=== PATIENT | female | born 1990 | race Caucasian/White ===

== ENCOUNTER 2021-03-03 16:26 | Emergency (ER) | payer MEDICAID, OTHER, SELFPAY ==
--- NOTE | ~2021-03-03 | CT_ITS ---
EXAMINATION: CT HEAD WITHOUT CONTRAST CLINICAL INFORMATION: Headache COMPARISON: CT head May 08, 2019, February 14, 2018 TECHNIQUE: Contiguous axial imaging was performed from the skull base to vertex without intravenous administration of contrast. Coronal and sagittal reformatted images are performed at the CT scanner. [This CT examination was performed using dose optimization techniques as appropriate, variously including the following: *Automated exposure control *Adjustment of mA and/or kV according to patient size (this includes techniques or standardized protocols for targeted exams where dose is matched to indication/reason for exam; i.e. extremities or head) *Use of iterative reconstruction technique] DLP: 702 mGy-cm. FINDINGS: There is no evidence of acute intracranial hemorrhage or territorial infarction. No abnormal mass-effect or midline shift is seen. Tomlin to white matter differentiation is well preserved. No extra-axial fluid collections are identified. The ventricles are normal in size. There is no abnormal attenuation within the brain parenchyma. There is no osseous abnormality. The mastoid air cells and visualized portions of the paranasal sinuses are well-aerated. CT/CT head/brain wo con IMPRESSION: No acute intracranial pathology.
[2021-03-03 17:33] VITALS: BP 122/55; PULSE 78; RESP 18; TEMP 36.6; O2SAT 100; BMI 26.6
--- NOTE | 2021-03-03 17:35 | ED.HA ---
HPI - Headache General Chief Complaint: Headache Stated Complaint: migraine Time Seen by Provider: 03/03/21 17:34 Source: patient Mode of arrival: ambulatory Limitations: no limitations History of Present Illness HPI Narrative: PATIENT PRESENTS TO ED FOR HEADACHE, SINUS PRESSURE PAIN, RIGHT EAR PAIN, AND NASAL CONGESTION. PATIENT WAS CONCERNED DUE TO SEVERITY OF HEADACHE and symptoms for 2 days.. PATIENT STATES SHE IS NOT VACCINATED. PATIENT DENIES ANY FEVER, CHILLS, NECK STIFFNESS, PHOTOPHOBIA, NAUSEA, OR VOMITING. PATIENT DENIES ANY CHEST PAIN, SHORTNESS OF BREATH, OR COUGHING. Related Data Previous Rx's Medication Instructions Recorded fluticasone propionate 50 2 spray INTRANASAL DAILY PRN 9 03/03/21 mcg/actuation nasal Days #16 g spray,suspension naproxen 500 mg tablet 500 mg PO BID PRN #20 tab 03/03/21 Allergies Allergy/AdvReac Type Severity Reaction Status Date / Time No Known Allergies Allergy Unverified 02/15/20 19:33 [No Known Allergies*] Review of Systems Review of Systems: Yes all other systems are reviewed and are negative Constitutional: Constitutional: Reports as per HPI, Reports no additional constitutional complaints and Reports headache(s) Eyes: Eyes: Reports as per HPI and Reports no additional eye complaints ENT: Reports otalgia, Reports headache(s), Reports sinus pressure and Reports sore throat Cardiovascular: Cardiovascular: Reports as per HPI and Reports no additional cardiovascular complaints Respiratory: Respiratory: Reports as per HPI and Reports no additional respiratory complaints Gastrointestinal: Gastrointestinal: Reports as per HPI and Reports no additional gastrointestinal complaints Genitourinary: Genitourinary: Reports no additional female genitourinary complaints and Reports as per HPI Musculoskeletal: Musculoskeletal: Reports no additional musculoskeletal complaints and Reports as per HPI Neurologic: Reports system reviewed and no additional complaints, except as documented, Reports as per HPI and Reports headache(s) Psychiatric: Psychiatric: Reports no additional psychiatric complaints and Reports as per HPI [facility] Social History Social History Advance Directives: No Advance Directives Information Provided: No Patient : No Physical Exam Vital Signs: Vital Signs: Last Vital Signs Temp 98 F 03/03/21 17:33 Pulse 78 03/03/21 17:33 Resp 18 03/03/21 17:33 BP 122/55 L 03/03/21 17:33 Pulse Ox 100 03/03/21 17:33 Body Mass Index 26.6 Const: General: cooperative, healthy appearing, comfortable, no acute distress, well developed, alert, awake and Physically active Orientation/consciousness: patient oriented x3 HENMT: Head: Yes normal to inspection, Yes No palpable skull fracture present, Yes normocephalic and Yes atraumatic Ears: hearing grossly normal bilaterally, external ears normal, TM's normal bilaterally, EAC's normal, mastoids normal and no periauricular adenopathy Face and sinus: Yes sinus tenderness (FRONTAL AND MAXILLARY) Throat: Yes posterior oropharynx normal, Yes tonsils normal and Yes uvula midline Eyes: General: appearance normal, both eyes and all related structures Neck: Neck: Yes normal visual inspection, Yes full ROM, Yes no lymphadenopathy, Yes no meningeal signs, Yes trachea midline, Yes supple, No anterior neck swelling and No tender Chest: Chest palpation & inspection: normal inspection of the chest and normal palpation of entire chest wall Resp: Effort & Inspection: normal respiratory effort and able to speak in complete sentences Auscultation: clear to auscultation bilaterally Cardio: Jugular venous distension: no JVD Heart sounds: S1 normal heart sound present and S2 normal heart sound present GI: Inspection: Yes normal to inspection and No abdominal wall ecchymosis Palpation (GI): Soft to palpation, not firm, nontender, no guarding and not rigid : General: No CVA tenderness and Yes no CVA tenderness Back/Spine/Pelvis: Back: no CVA tenderness, No CVA tenderness and No back tenderness Skin: General skin exam: no rashes or lesions noted and elasticity normal Neuro: General: patient oriented x3, gait normal, no meningeal signs and CN's II-XI intact bilaterally Cranial nerves: Yes CN's II-XII intact bilaterally Extrem: General: Yes normal to inspection and Yes full ROM Psych: Appearance: grossly normal, well kempt and not disheveled Course Course Course Narrative: COVID SWAB ORDERED. PATIENT WAS CONCERNED due to HEADACHE ALTHOUGH SHE HAS SINUS TENDERNESS PATIENT WAnts HEAD CT SCAN DUE TO PARIETAL/POSTERIOR HEADACHE WITH SINUS PRESSURE AND RUNNY NOSE AND EAR PAIN. Reevaluation(s) Reevaluation #1: HEAD CT IN COVID SOME CAME BACK NEGATIVE. PATIENT WILL BE DISCHARGED WITH NEEDLE CORE AND NAPROXEN. Time: 19:41 MDM - Headache MDM Narrative Medical decision making narrative: SINUSITIS/HEADACHE Lab Data Labs: Lab Results 03/03/21 Range/Units 18:19 COVID-19 (MARCY) Negative (Negative) COVID-19 Clin Com See Note Discharge Plan Discharge Clinical Impression: Headache, Sinusitis Patient Disposition: Home, Self-Care Instructions: Sinusitis (ED), General Headache (ED) Additional Instructions: Your CT SCAN AND COVID SWAB CAME BACK NEGATIVE. Return to the ED immediately for any chest, shortness of breath, blurry vision, loss of vision, neck stiffness, photophobia, nausea, vomiting, slurred speech, facial droop, paralysis of extremities, or any other concerning symptoms. Please follow up with PCP Prescriptions: New naproxen 500 mg tablet 500 mg PO BID PRN (Reason: pain) Qty: 20 RF: 0 fluticasone propionate 50 mcg/actuation spray,suspension 2 spray intranasal DAILY PRN (Reason: nasal congestion) 9 Days Qty: 16 RF: 0 Stand Alone Forms: Work/School Release Print Language: Croatian
[2021-03-03 18:43] LABS: COVID-19 Test Negative (Negative)
== END 2021-03-03 19:54 | disposition home or self-care (01) ==
PROVIDERS: Physician Assistant; Emergency Provider Internal Medicine
DX: J32.9 Chronic sinusitis, unspecified (principal); R51.9 Headache, unspecified; Z20.822 Contact with and (suspected) exposure to COVID-19; Z79.899 Other long term (current) drug therapy
CPT/HCPCS: 36415; 70450; 87635; 99283; 99284

== ENCOUNTER 2021-03-26 10:47 | Outpatient (REF) | payer MEDICAID, OTHER, SELFPAY ==
--- NOTE | ~2021-03-26 | MM_ITS ---
EXAMINATION: MM DIAGNOSTIC DIGITAL BREAST TOMOSYNTHESIS, BILATERAL TARGETED LEFT BREAST ULTRASOUND CLINICAL INFORMATION: Left breast pain and fullness. The lifetime risk of breast cancer based on the Tyrer-Cuzick Model is 9.3%. COMPARISON: Mammography: None. TECHNIQUE: Digital breast tomosynthesis is performed in both the craniocaudal and mediolateral oblique views along with computer-aided detection (CAD). Synthesized 2D images are generated from the tomosynthesis. Targeted left breast ultrasound. FINDINGS: BILATERAL MAMMOGRAM: The breasts are heterogeneously dense, which may obscure small masses (ACR BI-RADS breast composition Category c). There are no significant masses, abnormal calcifications, or other abnormalities. LEFT BREAST ULTRASOUND: Targeted left breast ultrasound did not demonstrate any abnormal cystic or solid lesions. No region of abnormal distal sound shadowing appreciated. Results are discussed with the patient at time of visit. MM/MM tomosynthesis diagnostic BI IMPRESSION: No specific mammographic or ultrasound findings to suggest malignancy. ASSESSMENT: BI-RADS 1: Negative. RECOMMENDATION: Clinical management. This patient's information was entered into a reminder system with a target due date for their next mammogram.
--- NOTE | ~2021-03-26 | US_ITS ---
EXAMINATION: US DIAGNOSTIC ULTRASOUND BREAST, LEFT CLINICAL INFORMATION: Pain for 6 months. COMPARISON: Mammography of same day. TECHNIQUE: Ultrasound of the breast is performed with real-time castillo scale imaging and color Doppler. FINDINGS: There is no focal suspicious finding. There is no solid mass, architectural abnormality, duct ectasia, or edema in the soft tissue planes. Results are discussed with the patient at time of visit. US/US breast LT limited IMPRESSION: No ultrasound findings to suggest malignancy. ASSESSMENT: BI-RADS 1: Negative RECOMMENDATION: Yearly mammography at age 38.
== END 2021-03-26 10:48 | disposition home or self-care (01) ==
LOC: HO.MAMMO 10:47
PROVIDERS: Visit Provider General Practice
DX: N64.4 Mastodynia (principal)
CPT/HCPCS: 76642; 77062; 77066

== ENCOUNTER 2021-08-14 15:32 | Outpatient (REF) | payer OTHER, MEDICAID, SELFPAY ==
--- NOTE | ~2021-08-14 | US_ITS ---
EXAMINATION: US PELVIS CLINICAL INFORMATION: Pelvic and perineal pain; the last menstrual period was on 07/20/2021. COMPARISON: None TECHNIQUE: Ultrasound of the pelvis is performed using both transabdominal and transvaginal transducers along with Doppler. Transvaginal imaging is performed due to inadequate visualization transabdominally. FINDINGS: Uterus: The uterus is anteverted and measures 9.5 x 5.2 x 6.8 cm. The double wall endometrial thickness is 1.2 mm. The uterus is smooth in contour and has normal myometrial echogenicity. No visible fibroid. Adnexa: Both ovaries are visualized. There is normal color flow to the adnexa. There is no ovarian torsion. There is no pelvic ascites or fluid collection. The right ovary contains a 2.8 x 1.8 x 2.6 cm hemorrhagic cyst, with characteristic internal reticulated contents. There is an adjacent 2.6 x 1.8 x 2.1 cm simple cyst. Right ovary measures 4.3 x 3.5 x 2.9 cm, (volume 22.9 mL). There is a small amount of free fluid situated adjacent to the right ovary. Left ovary measures 3.0 x 1.7 x 1.6 cm, (volume 4.2 mL). There is a small amount of free fluid in the cul-de-sac. No adnexal mass is seen. US/US pelvic and transvaginal IMPRESSION: 1. A 2.8 cm in maximal diameter hemorrhagic right ovarian cyst and an adjacent 2.6 cm and maximal diameter simple right ovarian cyst have benign appearances. No ultrasound follow-up is recommended. 2. There is a small amount of nonspecific free fluid situated adjacent to the right ovary and within the cul-de-sac.
== END 2021-08-14 15:33 | disposition home or self-care (01) ==
LOC: HO.HMGCX 15:32
PROVIDERS: Visit Provider General Practice
DX: R10.2 Pelvic and perineal pain (principal)
CPT/HCPCS: 76830; 76856

== ENCOUNTER 2022-03-08 14:12 | Emergency (ER) | payer MEDICAID, OTHER, SELFPAY ==
[2022-03-08 14:22] VITALS: BP 121/79; PULSE 78; RESP 14; TEMP 36.8; O2SAT 99; BMI 29.7
--- NOTE | 2022-03-08 18:28 | ED_ITS ---
HPI - Fall General Chief Complaint: Fall Stated Complaint: Fall/back pain Time Seen by Provider: 03/08/22 18:03 Source: patient Mode of arrival: ambulatory Limitations: language barrier History of Present Illness HPI Narrative: 32-year-old female presents for lower back pain, left chest wall pain, mid back and right shoulder pain after falling down some stairs on Wednesday. She does not describe any prodromal events, states she tripped down the stair. She presents today because all xvde-lms-qlsjvry measures that she has tried has not alleviated her pain. She did not hit her head, and did not lose consciousness. MD complaint: fall Onset (ago): day(s) (3) Fall from: standing and down stairs (#) (3) Fall witnessed: no Place fall occurred: home Loss of consciousness: none Prolonged down time: no Symptoms prior to fall: none Context: tripped/slipped Location of injury: neck, chest and back Location of injury - extremities: right: shoulder Severity: moderate Severity scale (1-10): 7 Quality: aching, spasming and throbbing Associated symptoms (after fall): neck pain Related Data Previous Rx's Medication Instructions Recorded fluticasone propionate 50 2 spray intranasal DAILY PRN nasal 03/03/21 mcg/actuation nasal congestion 9 days #16 grams spray,suspension naproxen 500 mg tablet 500 mg PO BID PRN pain #20 tabs 03/03/21 cyclobenzaprine 10 mg tablet 10 mg PO TID PRN muscle spasm #14 03/08/22 tabs Allergies Allergy/AdvReac Type Severity Reaction Status Date / Time No Known Allergies Allergy Verified 03/08/22 14:27 [No Known Allergies*] Review of Systems Review of Systems: Constitutional: No Fever, No Chills ENT/Mouth: No Ear Pain, No Hoarseness, No sore throat Eyes: No Eye Pain, No Swelling, No Redness, No Foreign Body Cardiovascular: No Chest Pain, No SOB Respiratory: No Cough, No Dyspnea Gastrointestinal: No Nausea, No Vomiting, No Diarrhea, No abdominal Pain Genitourinary: No Dysuria, No Hematuria Musculoskeletal: positive neck, thoracic and lumbar spine, right shoulder and left chest wall pain, No Myalgias, No Joint Swelling Skin: No Skin lacerations, No rash Neuro: No Weakness, No Numbness, No Paresthesias, No Loss of Consciousness, No Dizziness, No Headache Psych: No Anxiety/Panic, No Depression Heme/Lymph: no easy bruising, no Lymphadenopathy Endocrine: No Polyuria, No Polydipsia Yes all other systems are reviewed and are negative [facility] Past Medical History Attestation statement: The following information was validated with the patient. Source: old records reviewed Social History Social History Advance Directives: No Advance Directives Information Provided: Yes Physical Exam Vital Signs: Vital Signs: Last Vital Signs Temp 98.2 F 03/08/22 14: Pulse 78 03/08/22 14:22 Resp 14 03/08/22 14:22 BP 121/79 03/08/22 14: Pulse Ox 99 03/08/22 14: O2 Del Method 03/08/22 14:22 BMI result Body Mass Index 29.7 Appearance: Alert. Oriented X3. No acute distress. Head: Normal external exam. Normocephalic. Atraumatic. No Prasad signs noted. No raccoon eyes noted Eyes: PERRLA. EOMI. Conjunctiva and sclera normal. Eyelids normal. ENT: Pharynx normal. Uvula midline. Moist mucous membranes. Neck: Normal inspection. Neck supple. No adenopathy. No meningeal signs. No vertebral tenderness or step-offs. CVS: Normal heart rate and rhythm. Heart sound normal. No murmurs noted. Pulses equal to all extremities. Chest wall tenderness greater on the left than the right on palpation. No crepitus. Respiratory: No respiratory distress. Painless inspiration. Breath sounds normal. No wheezes/rales/rhonchi noted. No accessory muscle usage noted or decreased air movement noted. Abdomen: Soft and nontender. Bowel sounds normal in all 4 quadrants. No distention noted. No organomegaly noted. No visible injury noted. Back: No CVA tenderness. Full range of motion noted. Skin: Skin warm and dry. Normal skin color. Normal skin turgor. No rashes/lesions/lacerations noted. Extremities: No lower extremity edema. Extremities exhibit normal range of motion. Extremities nontender. Neuro: cranial nerves 2-12 intact, no focal neural deficits, strength 5/5 to all extremities, No motor deficit. No sensory deficit. Course Course Course Narrative: 32-year-old female presents for evaluation for injury sustained from a fall that occurred on Wednesday. She did not present to the emergency department on Wednesday because she felt that the pain was well managed however the pain has worsened over the past few days even with all the bdur-mug-ymwtwnn measures that she has tried. She does not describe any prodromal symptoms prior to the fall, states that it was a mechanical trip and fall. She did not hit her head or lose consciousness, and denies symptoms indicating cauda equina. Patient is alert oriented x4, Lao speaking and is requesting a family interpret for her verses the [employer]. 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 Patient's physical exam is unremarkable, has full range of motion to all extremities, and her gait is well balanced well coordinated. Will order x-rays of the neck, thoracic, lumbar, right shoulder and left chest wall. 19:37 x-rays negative for acute findings requiring emergent intervention. Will treat with cyclobenzaprine for muscle spasms. Patient verbalized understanding of and agrees to plan of care discharge home. Verbalized understanding of signs and symptoms indicating need for emergent intervention. 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 Google translate utilized for discharge instructions. MDM - Fall Differential Diagnosis Differential diagnosis: Likely dislocation, fracture and compression fracture Medical Records Attestation: I reviewed the patient's medical records. Imaging Data Thoracic spine, lumbar spine, cervical spine, ribs and shoulder x-ray: Attestation: I personally reviewed and interpreted this imaging study as follows: Radiologist's impression: EXAMINATION: XR thoracic spine 2V, XR ribs LT min 3V w CXR1V, XR shoulder RT min 2V, XR cervical spine 3V, XR lumbar spine 2-3V CLINICAL INFORMATION: Reason for Exam: fall with pain COMPARISON: None. TECHNIQUE: AP, lateral, open-mouth odontoid, Fuchs view cervical spine; AP, lateral, swimmer's lateral view thoracic spine; 3 views lumbosacral spine; 3 views right shoulder; chest x-ray and 3 views left RIBS FINDINGS: Cervical spine: C1 to top of T1 are visible on the lateral view. Straightening of the normal cervical lordosis. No subluxation. No acute fracture prevertebral soft tissue swelling. Atlantodens interval and C1-C2 alignment are maintained. Intervertebral disc space heights are maintained. Mild anterior endplate proliferative change at C6-C7 consistent with mild degenerative disc disease. Thoracic spine: Normal alignment of the thoracic spine. No subluxation. Vertebral body heights and intervertebral disc space heights are maintained. Small anterior endplate osteophytes in the mid upper thoracic spine noted consistent with minimal degenerative disc disease. Lumbar spine: Normal alignment of the lumbar spine. No subluxation. Vertebral body heights and intervertebral disc space heights are maintained. No pars defects. Right shoulder: No fracture or dislocation. Glenohumeral joint space and acromiohumeral interval are maintained. AC joint is congruent and intact. No periarticular soft tissue calcifications. Small subcentimeter sclerotic bone island noted incidentally in the humeral head. Visualized right lung is grossly clear. Chest x-ray and left rib films: The lungs are clear. No airspace consolidation, pleural effusion, or pneumothorax. The cardiomediastinal silhouette is within normal limits. No acute osseous injury. No acute displaced rib fracture identified. XR/XR ribs LT min 3V w CXR1V IMPRESSION: ? 1. No subluxation or fracture identified in the cervical, thoracic, lumbar spine. 2. No acute fracture or dislocation at the right shoulder. 3. No acute pulmonary process. No acute displaced rib fracture identified.? Discharge Plan Discharge Clinical Impression: Fall with injury, Muscle spasm Patient Disposition: Home, Self-Care Instructions: Muscle Spasm (ED) Additional Instructions: Voc? foi avaliado por les?o sofrida por jane queda. As radiografias s?o negativas para achados agudos que requerem interven??o emergente. Por favor, tome ciclobenzaprina 10 mg a cada 8 horas conforme necess?adeola para espasmos musculares. Helen medicamento ? um relaxante muscular, helen medicamento pode retardar o tempo de saurav??o, aumentar o risco de quedas e causar sonol?ncia. N?o dirija ou opere m?quinas enquanto estiver tomando helen medicamento. Pode considerar o acompanhamento com o m?dico de cuidados prim?dodge, pois voc? pode precisar de fisioterapia para essas les?es. Obrigado por escolher helen pronto-rad para avalia??o. Por favor, fa?a o acompanhamento com o m?dico de cuidados prim?dodge, conforme necess?adeola. Retorne ao departamento de emerg?ncia para quaisquer sintomas novos, preocupantes ou agravantes. You were evaluated for injury sustained from a fall. X-rays are negative for acute findings requiring emergent intervention. Please take cyclobenzaprine 10 mg every 8 hours as needed for muscle spasms. This medication is a muscle relaxer, this medication can delay reaction time, increased risk for falls, and cause drowsiness do not drive or operate machinery while taking this medication. May consider following up with primary care physician as you may need physical therapy for these injuries. Thank you for choosing this emergency department for evaluation. Please follow-up with primary care physician as needed. Return to the emergency department for any new, concerning, or worsening symptoms. Prescriptions: New cyclobenzaprine 10 mg tablet 10 mg PO TID PRN (Reason: muscle spasm) Qty: 14 0RF No Action naproxen 500 mg tablet 500 mg PO BID PRN (Reason: pain) Qty: 20 0RF fluticasone propionate 50 mcg/actuation spray,suspension 2 spray intranasal DAILY PRN (Reason: nasal congestion) 9 Days Qty: 16 0RF Rx Instructions: administer into each nostril Interventions: ED Discharge Assessment Last Done: 03/08/22 20:21 Discharge Date/Time: 03/08/22 20:22
== END 2022-03-08 20:22 | disposition home or self-care (01) ==
PROVIDERS: Emergency Provider Emergency Medicine Emergency Medical Services; PCP General Practice
DX: S29.9XXA Unspecified injury of thorax, initial encounter (principal); M62.830 Muscle spasm of back; M54.2 Cervicalgia; R51.9 Headache, unspecified; M54.6 Pain in thoracic spine; R07.81 Pleurodynia; M25.511 Pain in right shoulder; R07.89 Other chest pain; W10.9XXA Fall (on) (from) unspecified stairs and steps, initial encounter; Y93.9 Activity, unspecified; Y92.9 Unspecified place or not applicable; Y99.9 Unspecified external cause status; Z79.899 Other long term (current) drug therapy
CPT/HCPCS: 71101; 72040; 72070; 72100; 73030; 99282

== ENCOUNTER 2023-03-12 15:14 | Outpatient (REF) | payer MEDICAID, OTHER, SELFPAY ==
[2023-03-12 15:57] LABS: MANUAL DIFF FLAG NO
[2023-03-12 16:12] LABS: Basophils Percent Auto 0.1 % (0-2); Eosinophils Absolute Auto 0.1 X10*3/uL (0.0-0.4); Eosinophils Percent Auto 0.8 % (0-4); Hematocrit 41.3 % (37.0-47.0); Hemoglobin 13.5 g/dl (12.0-16.0); Imm Gran Abs Auto 0.02 X10*3/uL (0.00-0.03); Imm Gran Pct Auto 0.3 % (0.0-0.4); Lymphocytes Absolute Auto 2.6 X10*3/uL (1.2-4.9); Lymphocytes Percent Auto 33.6 % (20-40); Mean Corpuscular HGB Conc 32.7 g/dl (31.0-35.0); Mean Corpuscular Hemoglobin 27.7 pg (27.0-33.0); Mean Corpuscular Volume 84.6 fL (80.0-98.0); Mean Platelet Volume 10.6 fL (9.4-12.3); Monocytes Absolute Auto 0.5 X10*3/uL (0.1-1.2); Neutrophils Absolute Auto 4.5 x10*3/uL (2.0-8.3); Neutrophils Percent Auto 58.2 % (45-73); Platelet Count 234 X10*3/uL (160-400); Red Blood Count 4.88 X10*6/uL (4.20-5.50); White Blood Count 7.7 X10*3/uL (4.8-10.8)
== END 2023-03-12 15:15 | disposition home or self-care (01) ==
LOC: HO.HHCL 15:14
PROVIDERS: Visit Provider General Practice
DX: R53.83 Other fatigue (principal)
CPT/HCPCS: 36415; 84443; 85025

== ENCOUNTER 2023-09-20 11:22 | Outpatient (REF) | payer MEDICAID, OTHER, SELFPAY ==
[2023-09-21 04:28] LABS: HIV AB/AG Nonreactive (Nonreactive); HIV Num 1 0.04 S/CO (0.00-0.99); ~HepC Num1 0.11 S/CO (0.00-0.79); ~Hepatitis C Antibody Nonreactive (Nonreactive)
[2023-09-21 06:37] LABS: CT PCR NOT DETECTED (Not Detect.); NG PCR NOT DETECTED (Not Detect.)
[2023-09-22 10:14] LABS: RPR Rapid Plasma Reagin NON-REACTIVE (NON-REACTIVE)
== END 2023-09-20 11:23 | disposition home or self-care (01) ==
LOC: HO.HHCL 11:22
PROVIDERS: Visit Provider General Practice
DX: Z11.3 Encounter for screening for infections with a predominantly sexual mode of transmission (principal); Z11.4 Encounter for screening for human immunodeficiency virus [HIV]
CPT/HCPCS: 0353U; 36415; 86592; 86803; 87389

== ENCOUNTER 2024-01-06 18:12 | Emergency (ER) | payer MEDICAID, OTHER, SELFPAY ==
[2024-01-06 18:23] VITALS: BP 106/54; PULSE 83; RESP 16; TEMP 36.6; O2SAT 98; BMI 26.1
--- NOTE | 2024-01-06 18:23 | ED.GENADULT ---
HPI - General Adult General Chief complaint: Upper Respiratory Symptoms Stated complaint: body aches sob Time Seen by Provider: 01/06/24 19:05 Source: patient Mode of arrival: ambulatory Limitations: no limitations History of Present Illness ED Provider: REBECCA CHARLTON PA-C HPI narrative: 33 year old female with no significant pmhx presents to the ED today for evaluation of myalgias and nonproductive cough x4 days. Her daughter and are ill with similar symptoms. Denies fever, chills, sore throat. Vaccinations UTD. No other concerns. Related Data Previous Rx's ?Medication ?Instructions ?Recorded fluticasone propionate 50 2 spray intranasal DAILY PRN nasal 03/03/21 mcg/actuation nasal congestion 9 days #16 grams spray,suspension naproxen 500 mg tablet 500 mg PO BID PRN pain #20 tabs 03/03/21 cyclobenzaprine 10 mg tablet 10 mg PO TID PRN muscle spasm #14 03/08/22 tabs penicillin V potassium 500 mg 500 mg PO BID 10 days #20 tabs 01/06/24 tablet Allergies Allergy/AdvReac Type Severity Reaction Status Date / Time No Known Allergies Allergy Verified 01/06/24 18:25 [No Known Allergies*] Review of Systems Review of Systems: Constitutional: No fever, chills, fatigue, night sweats, weight changes ENT/Mouth: No ear pain, hearing loss, nasal congestion, sinus pain, rhinorrhea, sore throat, odynophagia Eyes: No eye pain, swelling, redness, vision changes, discharge Cardio: No chest pain, palpitations, BOLAÑOS, orthopnea, peripheral edema Pulm: No SOB, cough, sputum, wheezing, dyspnea, hemoptysis, +cough GI: No nausea, vomiting, hematemesis, abdominal pain, diarrhea, constipation, hematochezia, melena : No irregular bleeding, dysuria, frequency, urgency, hesitancy, hematuria, flank pain MSK: No back pain, neck pain, joint pain, +myalgias Skin: No lesions, rashes Neuro: No weakness, numbness, paresthesias, LOC, dizziness, headache All other systems reviewed and are negative. [facility] Past Medical History Attestation statement: The following information was validated with the patient. Source: old records reviewed and nursing notes reviewed Social History Social History Advance Directives: No Advance Directives Information Provided: No Physical Exam ED Vital Signs: Vital Signs - 24 hr 01/06/24 18:23 01/06/24 19:27 01/06/24 19:35 Temperature 98 F 98.4 F 98.4 F Pulse Rate 83 64 64 Respiratory Rate 16 18 18 Blood Pressure 106/54 L 116/40 L 116/40 L Pulse Oximetry 98 99 99 Oxygen Delivery Method Room Air Room Air Room Air BMI result Body Mass Index 26.1 Vital signs stable, afebrile Const General: cooperative, healthy appearing, comfortable and no acute distress Orientation/consciousness: patient oriented x3 Limitations: no limitations HENMT Other: + posterior oropharynx erythematous, no edema, uvula is midline, no tonsilar exudates or peritonsillar masses, controlling secretions and speaking in complete sentences. Head: Yes normal to inspection, Yes normocephalic and Yes atraumatic Ears: hearing grossly normal bilaterally, external ears normal, TM's normal bilaterally, EAC's normal, mastoids normal and no periauricular adenopathy General nose exam: Normal external nose present and No nasal discharge present Face and sinus: Yes normal facial exam and Yes sinuses nontender Eyes General: appearance normal, both eyes and all related structures Pupils: Equal, round and reactive pupils present Neck Other: + no cervical, submandibular or submental LAD. Neck: Yes normal visual inspection and Yes full ROM Resp Effort & Inspection: normal respiratory effort and able to speak in complete sentences Auscultation: clear to auscultation bilaterally Cardio Rate: regular rate Rhythm: regular rhythm GI Inspection: Yes normal to inspection Palpation (GI): Soft to palpation and nontender Skin General skin exam: no rashes or lesions noted Neuro General: patient oriented x3, gait normal and moves all extremities Cranial nerves: Yes Equal, round and reactive pupils present Extrem General: Yes normal to inspection Course Course Course Narrative: This is a Rapid Medical Examination (RME) performed by Roxana Charlton PA-C in triage. Full HPI, ROS, assessment and treatment plan per primary provider in the Main ED. 33 yo female here for eval of myalgias and nonproductive cough x4 days. denies fever, chills, sore throat. daughter and ill will same symptoms. +lungs clear Plan: viral, strep swabs ordered Reevaluation(s) Reevaluation #1: 1930-- patient tested negative for COVID, flu, RSV, strep throat. Her daughter tested strep she has been in close contact. Will treat prophylactically for strep throat. Penicillin sent to pharmacy for treatment. Patient has remained stable throughout ED visit today. Discussed worrisome signs and symptoms and when to return to the ED. All questions answered at this time. Patient is agreeable with disposition and stable for discharge. Medical Decision Making Medical Decision Making [facility] Narrative: 33 year old female with no significant pmhx presents to the ED today for evaluation of myalgias and nonproductive cough x4 days. Vital signs stable. Afebrile. Nontoxic appearing and in NAD. On exam, posterior oropharynx erythematous, no edema, uvula is midline, no tonsilar exudates or peritonsillar masses, controlling secretions and speaking in complete sentences. Bilateral EACs and TMs intact. No LAD. Lungs clear. skin w/d/i. no rashes. Differential diagnosis includes strep throat, viral syndrome. Unlikely mono, [employer], retropharyngeal abscess, dental abscess, epiglottis, acute respiratory distress, pneumonia. Plan for viral and strep swabs. Differential Diagnosis Differential Diagnoses: The differential diagnosis associated with the presentation includes as above. Admission/Observation Not indicated Lab Data [facility] Lab Attestation statement: I reviewed the patient's lab results. as above Labs: Lab Results 01/06/24 Range/Units 18:34 Influenza Type A (PCR) NEGATIVE (Negative) Influenza Type B (PCR) NEGATIVE (Negative) RSV RNA Qual (PCR) NEGATIVE (Negative) SARS-CoV-2 RNA (RT-PCR) NEGATIVE (Negative) S. pyogenes GrpA FRANCISCO Negative (Negative) External Record Review External record reviewed: Inpatient record Prescription Management I considered prescription management with: Pain Medication (tylenol/ motrin) and Antibiotic (Penicillin) Social Determinants Patient?s care significantly limited by Social Determinants of Health including: Other Social Determinant of Health Critical Care Time Critical Care Time Critical Care Time: No Discharge Plan Discharge Clinical Impression: Exposure to strep throat Patient Disposition: Home, Self-Care Instructions: Penicillin V (By mouth) Additional Instructions: You tested negative for covid, flu, rsv, and strep throat. You have been exposed to strep throat and thus will be treated for it. Penicillin is an antibiotic that has been sent to your pharmacy. Take this twice daily for the next 10 days to treat strep throat. Do not stop taking these antibiotics early or miss any doses as this may cause infection to return or worsen. You may also purchase [id number] chloraseptic spray to numb your throat. Take Tylenol and ibuprofen as needed for body aches or fevers. Make sure to change your toothbrush as this contains bacteria. Strep throat is contagious. If anyone else in your household is exhibiting symptoms, please advise them to come to the ED, urgent care, or to see their primary care provider. Follow up with your primary care provider as needed. Return to the emergency department if your symptoms persist or worsen despite treatment or if you have difficulty swallowing, opening your mouth, or develop a rash. In the case of emergency, call 911.? Prescriptions: New penicillin V potassium 500 mg tablet 500 mg PO BID 10 Days Qty: 20 0RF No Action cyclobenzaprine 10 mg tablet 10 mg PO TID PRN (Reason: muscle spasm) Qty: 14 0RF naproxen 500 mg tablet 500 mg PO BID PRN (Reason: pain) Qty: 20 0RF fluticasone propionate 50 mcg/actuation spray,suspension 2 spray intranasal DAILY PRN (Reason: nasal congestion) 9 Days Qty: 16 0RF Rx Instructions: administer into each nostril Referrals: Agnes Mohan MD [Primary Care Provider] - Interventions: ED Discharge Assessment Last Done: 01/06/24 19:35 Discharge Date/Time: 01/06/24 19:38 Print Language: Estonian
--- OUTSIDE RECORDS SUMMARY | 2024-01-06 18:35 | XMS_ITS | Continuity of Care Document ---
Author Organization [facility] Address [address] [place] [id number] Care Team Providers Care Cloth Tester Quality Name Role Phone Not on Staff, PCP Primary Care Physician Unavail able Encounter [facility] Date(s): 03/06/22 - 03/07/[address] [id number]- Discharge Disposition: A-D/C Walkout Attending Physician: Not on Staff, Attending MD Admitting Physician: Not on Staff, Admitting MD Referring Physician: Not on Staff, Referring MD Allergies, Adverse Reactions, Alerts No Known Allergies Vital Signs Most recent to oldest [Reference Range]: 1 2 3 Oxygen Saturation [94-100 %] 99 % (03/06/22 11:06 PM) 99 % (03/06/22 7:01 PM) 100 % (03/06/22 6:15 PM) Pulse Rate [55-90 bpm] 73 bpm (03/06/22 11:06 PM) 78 bpm (03/06/22 7:01 PM) 87 bpm (03/06/22 6:15 PM) Blood Pressure [90-138/55-84 mm Hg] 111/57mm Hg (03/06/22 11:06 PM) 122/54mm Hg (03/06/22 7:01 PM) Respiratory Rate [16-30 br/min] 18 br/min (03/06/22 11:06 PM) 20 br/min (03/06/22 7:01 PM) Temperature [96.8-100.4 DegF] 98.1 DegF (03/06/22 11:06 PM) 98.2 DegF (03/06/22 7:01 PM) Mode of Delivery (Oxygen) Room air (03/06/22 11:06 PM) Room air (03/06/22 7:01 PM) Room air (03/06/22 6:15 PM) Blood pressure sites Arm, right (03/06/22 11:06 PM) Arm, right (03/06/22 7:01 PM) Temperature Route Oral (03/06/22 11:06 PM) Oral (03/06/22 7:01 PM) Patient Care team information Personnel Name: Not on Staff, PCP
[2024-01-06 18:52] LABS: IDNOW Serial# 58CA691E; Strep A Nucleic Acid Negative (Negative)
[2024-01-06 19:19] LABS: Influenza A PCR NEGATIVE (Negative); Influenza B PCR NEGATIVE (Negative); Resp Syncy Virus RNA Qual PCR NEGATIVE (Negative); SARS COV2 PCR INHOUSE NEGATIVE (Negative)
[2024-01-06 19:27] VITALS: BP 116/40; PULSE 64; RESP 18; TEMP 36.9; O2SAT 99
[2024-01-06 19:35] VITALS: BP 116/40; PULSE 64; RESP 18; TEMP 36.9; O2SAT 99
== END 2024-01-06 19:38 | disposition home or self-care (01) ==
PROVIDERS: Physician Assistant Medical; Emergency Provider Emergency Medicine; PCP General Practice
DX: R05.9 Cough, unspecified (principal); M79.10 Myalgia, unspecified site; Z03.818 Encounter for observation for suspected exposure to other biological agents ruled out
CPT/HCPCS: 0241U; 87651; 99282; 99283

== ENCOUNTER 2024-02-17 18:25 | Emergency (ER) | payer MEDICAID, OTHER, SELFPAY ==
[2024-02-17 18:45] VITALS: BP 117/71; PULSE 75; RESP 16; TEMP 36.9; O2SAT 99; BMI 29.0
[2024-02-17 19:14] LABS: COVID-19 Test Negative (Negative); IDNOW Serial# 08D9AD1C
--- NOTE | 2024-02-17 20:12 | ED_ITS ---
HPI - General Adult General Chief complaint: General Medical Stated complaint: body aches,headache Time Seen by Provider: 02/17/24 19:46 Source: patient and family Mode of arrival: ambulatory Limitations: no limitations History of Present Illness ED Provider: Zara Wells PA-C HPI narrative: 34-year-old female presents the ER for evaluation of generalized diffuse body aches and pains for the last 6 days. She reports right maxillary sinus pain and congestion along with chills, general malaise and fatigue. She presents with her daughter who has similar but more mild symptoms. She denies any fevers. No chest pain or abdominal pain. She has had decreased p.o. intake. She denies any cough or difficulty breathing. She is concerned she may have COVID. MD complaint: Headache, sinus pain Onset (ago): day(s) (6) Location: head and face Radiation: non-radiation Severity: severe Quality: aching Pain Consistency: constant Relieving factors: none Exacerbating factors: movement Associated symptoms: fever/chills, headaches, loss of appetite, malaise and weakness Treatments prior to arrival: NSAID Related Data Previous Rx's ?Medication ?Instructions ?Recorded fluticasone propionate 50 2 spray intranasal DAILY PRN nasal 03/03/21 mcg/actuation nasal congestion 9 days #16 grams spray,suspension naproxen 500 mg tablet 500 mg PO BID PRN pain #20 tabs 03/03/21 cyclobenzaprine 10 mg tablet 10 mg PO TID PRN muscle spasm #14 03/08/22 tabs penicillin V potassium 500 mg 500 mg PO BID 10 days #20 tabs 01/06/24 tablet acetaminophen 500 mg tablet 1,000 mg (2 x 500 mg) PO Q6H PRN 02/17/24 (Tylenol Extra Strength) fever or pain #20 tabs amoxicillin 875 mg-potassium 1 tab PO BID #20 tabs 02/17/24 clavulanate 125 mg tablet ibuprofen 600 mg tablet 600 mg PO Q8H PRN fever or pain 02/17/24 #14 tabs Allergies Allergy/AdvReac Type Severity Reaction Status Date / Time No Known Allergies Allergy Verified 02/17/24 18:46 [No Known Allergies*] Review of Systems Review of Systems: Yes all other systems are reviewed and are negative [facility] Social History Social History Advance Directives: No Advance Directives Information Provided: No Do you have a plan to hurt others: No Plan Physical Exam ED Vital Signs: Vital Signs - 24 hr 02/17/24 18:45 02/17/24 21:05 Temperature 98.5 F 98.5 F Pulse Rate 75 75 Respiratory Rate 16 16 Blood Pressure 117/71 117/71 Pulse Oximetry 99 99 Oxygen Delivery Method Room Air Room Air BMI result Body Mass Index 29.0 Appearance: Alert. Oriented X3. Appears ill Head: normocephalic, atraumatic. Face is symmetric. Right maxillary sinus tenderness. Eyes: Pupils equal, round and reactive to light. ENT: Pharynx normal. No tonsillar swelling or exudate. Normal tympanic membranes bilaterally. Neck: Normal inspection. Neck supple. No lymphadenopathy. CVS: Normal heart rate and rhythm. Pulses normal. Respiratory: No respiratory distress. Breath sounds normal. Abdomen: Soft and nontender. +BS x4 Skin: Skin warm and dry. Normal skin color. Normal skin turgor. No rashes. Extremities: No lower extremity edema. No joint swelling. Neuro/psych: Oriented X 3. grossly normal, nonfocal. Normal speech and cognition. Medications Administered Discontinued Medications Generic Name Dose Route Start Last Admin Trade Name Freq PRN Reason Stop Dose Admin Acetaminophen 975 mg 02/17/24 20:11 02/17/24 20:24 Acetaminophen 325 Mg Tablet PO 02/17/24 20:12 975 mg ONCE ONE Administration Amoxicillin/Clavulanate Potassium 875 mg 02/17/24 20:11 02/17/24 20:25 Amoxicillin/Potassium Clav 875 Mg Tablet PO 02/17/24 20:12 875 mg ONCE ONE Administration Ketorolac Tromethamine 30 mg 02/17/24 20:11 02/17/24 20:26 Ketorolac Tromethamine 30 Mg/Ml Vial IM 02/17/24 20:12 30 mg ONCE ONE Administration Medical Decision Making Medical Decision Making MDM Narrative: 34-year-old female presents to the ER for evaluation of 6 days of generalized body aches and pains, headaches and right maxillary sinus pain and pressure. VS are stable. she presents w/ her daughter who has similar but milder symptoms. +flu exposure. covid and flu are negative today she has tenderness on right maxillary sinus palpation. will treat for acute sinusitis. supportive and symptomatic care discussed as well as return precautions. stable for d/c home Differential Diagnosis Differential Diagnoses: The differential diagnosis associated with the presentation includes strep, covid, flu, rsv, other viral syndrome, bronchitis, pneumonia, sinusitis, seasonal allergies Lab Data MDM Lab Attestation statement: I reviewed the patient's lab results. neg covid and flu Labs: Lab Results 02/17/24 02/17/24 Range/Units 18:51 20:18 COVID-19 (MARCY) Negative (Negative) COVID-19 Clin Com See Note Influenza Type A (FRANCISCO) Negative (Negative) Influenza Type B (FRANCISCO) Negative (Negative) Influenza A & B Note See Note Independent Historian Clinical information obtained from an independent historian. History obtained from or confirmed by: Other (adult daughter at the bedside) Tests considered The following testing was considered but not selected: considered basic lab workup and Cxr Prescription Management I considered prescription management with: Pain Medication and Antibiotic Discharge Plan Discharge Clinical Impression: Sinusitis Patient Disposition: Home, Self-Care Instructions: Sinusitis (ED) Additional Instructions: You tested negative for COVID and influenza. Take the prescribed antibiotics as directed, complete the entire course and do not miss any doses Rest and drink plenty of fluids. Take the prescribed ibuprofen and Tylenol alternating every 4 hours for pain and headaches. If you develop new or worsening symptoms call 911 or come back to the ER for further evaluation. Prescriptions: New amoxicillin-pot clavulanate 875-125 mg tablet 1 tab PO BID Qty: 20 0RF ibuprofen 600 mg tablet 600 mg PO Q8H PRN (Reason: fever or pain) Qty: 14 0RF acetaminophen [Tylenol Extra Strength] 500 mg tablet 1,000 mg PO Q6H PRN (Reason: fever or pain) Qty: 20 0RF No Action cyclobenzaprine 10 mg tablet 10 mg PO TID PRN (Reason: muscle spasm) Qty: 14 0RF naproxen 500 mg tablet 500 mg PO BID PRN (Reason: pain) Qty: 20 0RF fluticasone propionate 50 mcg/actuation spray,suspension 2 spray intranasal DAILY PRN (Reason: nasal congestion) 9 Days Qty: 16 0RF Rx Instructions: administer into each nostril penicillin V potassium 500 mg tablet 500 mg PO BID 10 Days Qty: 20 0RF Interventions: ED Discharge Assessment Last Done: 02/17/24 21:05 Discharge Date/Time: 02/17/24 21:06 Print Language: Prydeinig
[2024-02-17] MEDS: Acetaminophen 325 MG TABLET 975 MG PO (20:24)
[2024-02-17] MEDS: Amoxicillin/Potassium Clav 875 MG TABLET PO (20:25)
[2024-02-17] MEDS: Ketorolac Tromethamine 30 MG/ML VIAL IM (20:26)
[2024-02-17 20:40] LABS: IDNOW Serial# 08D9AD1C; Influenza A Negative (Negative); Influenza B2 Negative (Negative)
[2024-02-17 21:05] VITALS: BP 117/71; PULSE 75; RESP 16; TEMP 36.9; O2SAT 99
== END 2024-02-17 21:06 | disposition home or self-care (01) ==
PROVIDERS: Physician Assistant; Emergency Provider Emergency Medicine; PCP General Practice
DX: J01.00 Acute maxillary sinusitis, unspecified (principal); R53.81 Other malaise; Z03.818 Encounter for observation for suspected exposure to other biological agents ruled out
CPT/HCPCS: 87502; 87635; 96372; 99283; 99284; J1885